=== PATIENT | female | born 1965 | race Caucasian/White ===

== ENCOUNTER 2022-08-12 10:44 | Emergency (ER) | payer OTHER, SELFPAY ==
[2022-08-12 10:54] VITALS: BP 106/73; PULSE 99; RESP 20; TEMP 36.3; O2SAT 98; BMI 23.3
--- NOTE | 2022-08-12 11:29 | CRLHL7_ITS ---
For Patients: As a result of the Century Cures Act, medical imaging exams and procedure reports are released immediately into your electronic medical record. You may view this report before your referring provider. If you have questions, please contact your health care provider. INDICATION: Pain, swelling. TECHNIQUE: Ultrasound venous duplex lower right extremity. Compression venous exam was performed using mcgowan-scale, color Doppler, and spectral Doppler imaging. COMPARISON: None. FINDINGS: Sonographic imaging demonstrates the right common femoral, deep femoral, superficial femoral, popliteal, posterior tibial and greater saphenous and the contralateral left common femoral veins to be fully compressible with normal color Doppler blood flow. Subtle area of somewhat increased echotexture involving muscular tissue in the upper medial right calf, consider possible intramuscular hematoma or strain injury. No subcutaneous fluid. IMPRESSION: 1. No imaging evidence of right lower extremity DVT. 2. Possible intramuscular hematoma or strain injury in the right upper calf. Consider MRI evaluation as clinically warranted. Dictated by Varinder Strickland MD @ 08/12/2022 1:46:12 PM Dictated by: Varinder Strickland MD @ 08/12/2022 13:46:20 (Electronically Signed)
--- NOTE | 2022-08-12 11:33 | ED.GENADULT ---
HPI - General Adult General Chief complaint: Extremity Pain/Injury, Lower Stated complaint: Possible blood clot Time Seen by Provider: 08/12/22 10:54 History of Present Illness HPI narrative: This 56-year-old female comes in with pain and a small area of swelling in her left calf. This is been present for about a week. She does not report any particular injury event or strenuous activity. She states that the pain is there whether she is ambulating or not. She does not have any prior history of blood clot and is in good health otherwise. She does not report any shortness of breath. She arrives with normal vital signs. Related Data Home Medications Medication Instructions Recorded Confirmed eszopiclone 3 mg tablet 3 mg PO QHS 08/12/22 08/12/22 levothyroxine 88 mcg tablet 88 mcg PO DAILY 08/12/22 08/12/22 (Euthyrox) liothyronine 5 mcg tablet 15 mcg PO DAILY 08/12/22 08/12/22 Allergies Allergy/AdvReac Type Severity Reaction Status Date / Time Penicillins Allergy Hives Verified 08/12/22 11:00 Review of Systems Status of ROS: Reports: 10 or more systems reviewed and unremarkable except as noted in History and below Narrative: Constitutional: No fevers, no weight gain or loss. Eyes: No discharge. No vision changes. HENT: No congestion, no sore throat, no ear pain. Cardiovascular: No chest pain, no palpitations. Respiratory: No shortness of breath, no wheezes, no cough. Gastrointestinal: No abdominal pain, no vomiting, no diarrhea. Genitourinary: No dysuria, no hematuria. Musculoskeletal: Normal range of motion. She reports pain in her right calf. Skin: No rashes, no pruritis. Neurological: No dizziness, weakness, sensory change, speech change. Endo/Heme/Allergies: No bruising or bleeding. No polydipsia. Pysch: no suicidality, no anxiety, no insomnia. All other systems reviewed and are negative. PFSH PFS Social History Smoking Status: Never smoker Do you use any of these nicotine containing products: None Second hand tobacco smoke exposure: No How often do you have a drink containing alcohol: monthly or less How many standard drinks containing alcohol do you have on a typical day: 3 or 4 How often do you have six or more drinks on one occasion: Never AUDIT-C Alcohol total score: 2 Non-prescribed substance use: denies use Exam Narrative: Exam Narrative: Constitutional: Well-developed, well-nourished, no acute distress. HEENT: Normocephalic, atraumatic. Neck: Normal range of motion. Nontender. Supple. Heart: Regular. No murmurs. Normal rate. Intact distal pulses. Lungs: Clear to auscultation. No chest discomfort. No wheezes, rhonchi, or rales. Abdomen: Normal bowel sounds. Nontender. No rebound tenderness. Genitalia: Deferred. Back: No midline tenderness. Normal range of motion. Extremities: Normal range of motion. No injury. Pain in the right calf with a palpable small swelling about 3 cm in diameter. Skin: Intact. No rash. Warm. No erythema or pallor. Neurologic: No altered sensation. No weakness. Alert and oriented. Psychiatric: No suicidality. No anxiety or depression. No insomnia. Nursing notes and vitals signs are reviewed. Const: Vital Signs, click to edit/add: Vital Signs - 24 hr 08/12/22 10:54 08/12/22 13:09 Temperature 97.3 F L Pulse Rate [Pulse Oximeter] 99 86 Respiratory Rate 20 20 Blood Pressure [Ri t Upper Arm] 106/73 117/78 Pulse Oximetry 98 96 Oxygen Delivery Me thod Room Air Course Vital Signs Vital signs: Initial Vital Signs Temperature 97.3 F L 08/12/22 10:54 Temperature Source Temporal Artery Scan 08/12/22 10:54 Pulse Rate 99 08/12/22 10:54 Respiratory Rate 20 08/12/22 10:54 Blood Pressure 106/73 08/12/22 10:54 Blood Pressure Mean 84 08/12/22 10:54 Blood Pressure Position Sitting 08/12/22 10:54 Pulse Oximetry 98 08/12/22 10:54 Oxygen Delivery Method 08/12/22 10:54 Vital Signs Temperature 97.3 F L 08/12/22 10:54 Pulse Rate 99 08/12/22 10:54 Respiratory Rate 20 08/12/22 10:54 Blood Pressure 106/73 08/12/22 10:54 Pulse Oximetry 98 08/12/22 10:54 Oxygen Delivery Method 08/12/22 10:54 Temperature 97.3 F L 08/12/22 10:54 Pulse Rate 86 08/12/22 13:09 Respiratory Rate 20 08/12/22 13:09 Blood Pressure 117/78 08/12/22 13:09 Pulse Oximetry 96 08/12/22 13:09 Oxygen Delivery Method 08/12/22 10:54 Medical Decision Making MDM Narrative Medical decision making narrative: This patient comes in with some pain and a localized small lump in the right calf musculature. Ultrasound of the right lower extremity shows no evidence of venous thrombus. There is a swelling in the area where she reports some pain that is possibly a hematoma in the muscle or perhaps a lipoma. Lipoma is are not typically painful so more likely this was a intramuscular hematoma that should resolve on its own. This information is reassuring to the patient who is okay to be discharged home. She can use [id number] medicines as needed and directed. Imaging Data US R Lower Ext: Radiologist's impression: 1. No imaging evidence of right lower extremity DVT. 2. Possible intramuscular hematoma or strain injury in the right upper calf. Consider MRI evaluation as clinically warranted. Discharge Plan Discharge Clinical Impression: Hematoma Patient Disposition: Home, Self-Care Condition: Unchanged Additional Instructions: Activity as tolerated. Use [id number] medicines as needed and directed. Follow up with MD or return if worsening. Prescriptions: No Action liothyronine 5 mcg tablet 15 mcg PO DAILY levothyroxine [Euthyrox] 88 mcg tablet 88 mcg PO DAILY eszopiclone 3 mg tablet 3 mg PO QHS Follow Up/Referrals: Provider,Not a Local [Primary Care Provider] - Stand Alone Forms: [employer] Info Instructions
[2022-08-12 13:09] VITALS: BP 117/78; PULSE 86; RESP 20; O2SAT 96
== END 2022-08-12 14:04 | disposition home or self-care (01) ==
PROVIDERS: Emergency Provider Emergency Medicine Emergency Medical Services
DX: S80.12XA Contusion of left lower leg, initial encounter (principal)
CPT/HCPCS: 93971; 99283; 99284

== ENCOUNTER 2024-08-02 11:48 | Emergency (ER) | payer BC, SELFPAY ==
[2024-08-02] VITALS (7 sets, daily range): BP systolic 97–119; BP diastolic 54–74; PULSE 82–93; RESP 12–18; TEMP 36.6; O2SAT 95–97; BMI 25.0
--- OUTSIDE RECORDS SUMMARY | 2024-08-02 11:50 | XMS_ITS | Clinical Summary ---
Author Organization [facility] Address [address] [place] [id number] Care Team Providers Care Stage Setting Painter Apprentice Name Role Phone No Ref-Primary, Physician Primary Care Provider Allergies Active Allergy Reactions Criticality Noted Date Comments Penicillins Hives High 09/01/2009 Sulfa Antibiotics Nausea 09/01/2009 Medications liothyronine (CYTOMEL) 5 MCG tablet 09/02/2019 Active levothyroxine (SYNTHROID/LEVOTHR OID) 88 MCG tablet 09/02/2019 Active eszopiclone (LUNESTA) 3 MG tablet 08/13/2019 Active Active Problems Problem Noted Date Diagnosed Date Acute bilateral low back pain without sciatica 0 08/14/2019 Headache 12/19/2010 Overview (03/05/2015): Problem list name updated by automated process. Provider to review Lumbago 03/07/2010 Nonallopathic lesion of thoracic region 03/07/20 10 Overview (03/05/2015): Problem list name updated by automated process. Provider to review Nonallopathic lesion of cervical region 03/07/20 10 Overview (03/05/2015): Problem list name updated by automated process. 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 Gender Identity Not on file Sexual Orientation Not on file Last Filed Vital Signs Vital Sign Reading Time Taken Comments Blood Pressure 99/61 03/21/2011 11:17 AM CDT Pulse - - Temperature - - Respiratory Rate - - Oxygen Saturation - - Inhaled Oxygen Concentration - - Weight 61.2 kg (135 lb) 03/21/2011 11:17 AM CDT Height 165.1 cm (5' 5) 03/21/2011 11:17 AM CDT Body Mass Index 22.47 03/21/2011 11:17 AM CDT Plan of Treatment Not on file Insurance [employer] [facility] [employer] Care Teams Stage Setting Painter Apprentice Relationship Specialty Start Date End Date No Ref-Primary, Physician PCP - General 08/14/19
--- OUTSIDE RECORDS SUMMARY | 2024-08-02 11:50 | XMS_ITS | Encounter Summary ---
Author Organization [facility] Address [address] [place] [address] Care Team Providers Care Leveling Machine Operator Name Role Phone Noam Ulrich MD Primary Care Provider Unavailable Reason for Visit * Procedure/Equipment (Routine) - Closed Specialty Diagnoses / Procedures Referred By Contcal t Referred To Contact Diagnoses Stroke-like symptoms Procedures MR Brain W/WO IV Cont Carol Frankel MD [address] [place] [address] Phone: tel: fax: Referral ID Status Reason Start Date Expiration Date Visits Re quested Visits Authorized [id number] Closed 06/17/2024 09/16/2025 1 1 Encounter Details Date Type Department Care Team (Latest Contact Info) Description 06/17/2024 7:00 PM HELPER SHEAR OPERATOR Ancillary Procedure [facility] [address] [place] [address] Carol Frankel MD [address] [place] [phone] Stroke-like symptoms Social History Tobacco Use Types Packs/Day Years Used Date Smoking Tobacco: Never Smokeless Tobacco: Never Comments No Sex and Gender Information Value Date Recorded Sex Assigned at Not on file Legal Sex Female 9:45 AM CDT Gender Identity Not on file Sexual Orientation Not on file documented as of this encounter Plan of Treatment Upcoming Encounters Date Type Department Care Team (Late st Contact Info) Description 08/14/2024 9:00 AM CDT Appointment Neurology at [address] [phone] Alycia Silveira PA-C [address] [place] [address] documented as of this encounter Procedures Procedure Name Priority Date/Time Associated Diagnosis Comments MR BRAIN W/WO IV CONT STAT 06/17/2024 7:10 PM HELPER SHEAR OPERATOR Stroke-like symptoms documented in this encounter Results * MR Brain W/WO IV Cont (06/17/2024 7:10 PM HELPER SHEAR OPERATOR) Anatomical Region Laterality Modality Head Magnetic Resonan ce 06/17/2024 7:10 PM HELPER SHEAR OPERATOR Narrative 06/17/2024 7:28 PM HELPER SHEAR OPERATOR EXAM: MR BRAIN W/WO IV CONT LOCATION: [facility] DATE: 06/17/2024 INDICATION: Recurrent spells of difficulty ambulation and confusion,, Unspecified symptoms and signs involving COMPARISON: None. CONTRAST: GADOBUTROL 1 MMOL/ML IV SOLN 7.5 mL TECHNIQUE: Routine multiplanar multisequence head MRI without and with intravenous contrast. FINDINGS: INTRACRANIAL CONTENTS: No acute or subacute infarct. No mass, acute hemorrhage, or extra-axial fluid collections. Normal brain parenchymal signal. Normal ventricles and sulci. Normal position of the cerebellar tonsils. No pathologic contrast enhancement. SELLA: No abnormality accounting for technique. OSSEOUS STRUCTURES/SOFT TISSUES: Normal marrow signal. The major intracranial vascular flow voids are maintained. ORBITS: No abnormality accounting for technique. SINUSES/MASTOIDS: No paranasal sinus mucosal disease. No middle ear or mastoid effusion. IMPRESSION: 1. No acute infarct, acute intracranial hemorrhage, or pathologic intracranial contrast enhancement. Procedure Note Sonny Bennett MD - 06/17/2024 EXAM: MR BRAIN W/WO IV CONT LOCATION: [facility] DATE: 06/17/2024 INDICATION: Recurrent spells of difficulty ambulation and confusion,,Unspecified symptoms and signs involving COMPARISON: None. CONTRAST: GADOBUTROL 1 MMOL/ML IV SOLN 7.5 mL TECHNIQUE: Routine multiplanar multisequence head MRI without and withintravenous contrast. FINDINGS: INTRACRANIAL CONTENTS: No acute or subacute infarct. No mass, acutehemorrhage, or extra-axial fluid collections. Normal brain parenchymalsignal. Normal ventricles and sulci. Normal position of the cerebellartonsils. No pathologic contrast enhancement. SELLA: No abnormality accounting for technique. OSSEOUS STRUCTURES/SOFT TISSUES: Normal marrow signal. The majorintracranial vascular flow voids are maintained. ORBITS: No abnormality accounting for technique. SINUSES/MASTOIDS: No paranasal sinus mucosal disease. No middle ear ormastoid effusion. IMPRESSION: 1. No acute infarct, acute intracranial hemorrhage, or pathologicintracranial contrast enhancement. us Carol Frankel MD [facility] MRI Final Result documented in this encounter Visit Diagnoses Diagnosis Stroke-like symptoms Other symptoms involving nervous and musculoskeletal systems documented in this encounter Administered Medications Inactive Administered Medications - up to 3 most recent administrations Medication Order MAR Action Action Date Dose Rate Site gadobutrol (GADAVIST) 1 MMOL/ML injection 7.5 mL 7.5 mL, Intravenous, ONCE (NON-SCHEDULED), Starting on Sun06/17/24 at 1852, Until Sun06/17/24 at 1859, For 1 dose Given 06/17/2024 6:59 PM HELPER SHEAR OPERATOR 7.5 mL documented in this encounter Care Teams Leveling Machine Operator Relationship Specialty Start Date End Date Noam Ulrich MD [address] [place] [address] PCP - General Family Practice 01/04/18 documented as of this encounter
--- OUTSIDE RECORDS SUMMARY | 2024-08-02 11:50 | XMS_ITS | Clinical Summary ---
Author Organization [facility] Address [address] [address] Care Team Providers Care Founder Chairman And Chief Creative Officer Name Role Phone Noam Ulrich MD Primary Care Provider Unavailable Source Comments You are receiving this document as you are listed as the primary care provider,follow-up provider, or the patient has been referred to you for consultation.This is in compliance with the Medicare and[facility] EHR Incentive Program,which states Providers who transition their patient to another setting of careor provider of care or refers their patient to another provider of care shouldprovide summary care record for each transition of care or referral. [employer] Allergies Active Allergy Reactions Criticality Noted Date Comments Amoxicillin Hives High 02/13/2018 Sulfa Antibiotics Nausea 09/01/2009 Medications levothyroxine (SYNTHROID) 88 MCG tablet Take 88 mcg by mouth daily. Active Cholecalciferol (VITAMIN D3) 5000 units TABS Take 10,000 Units by mouth. 09/28/2016 Active vitamin B-12 (AKA: CYANOCOBALAMIN) 1000 MCG tablet Take 1,000 mcg by mouth. 03/13/2017 Active fluticasone (FLONASE) 50 MCG/ACT nasal solution 2 Sprays by Nasal route. 07/06/2015 Active multivitamin (THERAGRAN) tablet Take 1 Tablet by mouth. 07/06/2015 Active progesterone micronized (PROMETRIUM) 100 MG capsule Take 100 mg by mouth. 07/05/2017 Active progesterone micronized (PROMETRIUM) 200 MG capsule Take 200 mg by mouth. 09/07/2016 Active SUMAtriptan (IMITREX) 100 MG tablet Take by mouth. 09/26/2013 Active eszopiclone (LUNESTA) 3 MG tablet Take 1 Tablet by mouth daily at bedtime. 10 Tablet 12/17/2018 Active methocarbamol (ROBAXIN) 500 MG tablet 1-2 tabs TID PRN for spasm/pain 24 Tablet 03/20/2022 Active Active Problems Problem Noted Date Diagnosed Date Stroke-like symptoms 06/17/2024 Chronic insomnia 02/13/2018 Encounters Date Type Department Care Team Description 06/17/2024 7:00 PM [employer] Ancillary Procedure [facility] [address] [place] [address] Carol Frankel MD Stroke-like symptoms 06/17/2024 11:37 AM [employer] - 06/17/2024 3:03 PM [employer] [employer] [address] [place] [address] Genevieve Reagan MD Dizziness (Primary Dx); Stroke-like symptoms; Weakness Discharge Disposition: Home from Last 3 Months Social History Tobacco Use Types Packs/Day Years Used Date Smoking Tobacco: Never Smokeless Tobacco: Never Tobacco Cessation:Counseling Given: Not Answered Comments No Sex and Gender Information Value Date Recorded Sex Assigned at Not on file Legal Sex Female 9:45 AM CDT Gender Identity Not on file Sexual Orientation Not on file Last Filed Vital Signs Vital Sign Reading Time Taken Comments Blood Pressure 106/49 06/17/2024 1:30 PM [employer] Pulse 73 06/17/2024 1:30 PM [employer] Temperature 36.2 C (97.2 F) 06/17/2024 11:59 AM [employer] Respiratory Rate 16 06/17/2024 11:59 AM [employer] Oxygen Saturation 98% 06/17/2024 1:30 PM [employer] Inhaled Oxygen Concentration - - Weight 63.5 kg (140 lb) 07/09/2018 10:59 AM [employer] Height 165.1 cm (5' 5) 07/09/2018 10:59 AM [employer] Body Mass Index 23.3 07/09/2018 10:59 AM [employer] Plan of Treatment Upcoming Encounters Date Type Department Care Team (Late st Contact Info) Description 08/14/2024 9:00 AM CDT Appointment Neurology at [facility] [address] [place] [address] Alycia Silveira PA-C [address] [place] [address] Health Maintenance Due Date Last Done Comments Cervical Cancer Screening Due 1965 Colon Cancer Screening Plan Due 1965 Hep C Screening (Preventive Services) 1965 HIV Screening (Preventive Services) 1981 Adult Preventive Visit 10/08/1983 HepB (1) 1984 Cholesterol 2010 Pneumococcal 50+ Yrs (1 of 1 - PCV) 10/08/2015 Zoster/Shingles (1 of 2) 10/08/2015 COVID-19 Vaccine (1 - season) 2024 Influenza (#1) 2024 03/03/2009 Mammogram 05/02/2024 05/02/2023, 04/05, 05/02/2023, Additional history exists DTaP/Tdap/Td (3 - Tdap) 09/28/2026 09/28/2016, 12/10 HepA Aged Out No longer eligi ble based on patient's age to complete this topic Hib Aged Out No longer eligi ble based on patient's age to complete this topic IPV (Polio) Aged Out No longer eligi ble based on patient's age to complete this topic MCV4 Aged Out No longer eligi ble based on patient's age to complete this topic Meningococcal B Aged Out No longer el igible based on patient's age to complete this topic Procedures Procedure Name Priority Date/Time Associated Diagnosis Comments MR BRAIN W/WO IV CONT STAT 06/17/2024 7:10 PM [employer] Stroke-like symptoms C-REACTIVE PROTEIN Add-On 06/17/2024 2: 22 PM [employer] AMMONIA STAT 06/17/2024 2:22 PM [employer] FOLATE ONLY (4HR FAST RECOMMENDED) STAT 06/17/2024 2:22 PM [employer] VITAMIN B1, BLOOD Routine 06/17/2024 2:2 2 PM [employer] RAPID DRUG PANEL, URINE Routine 06/17/2024 2:22 PM [employer] RSV, MOLECULAR DETECTION STAT 06/17/2024 12:17 PM [employer] INFLUENZA VIRUS A AND B, MOLECULAR DETECTION STAT 06/17/2024 12:17 PM [employer] 2019 NOVEL CORONAVIRUS STAT 06/17/2024 12:17 PM [employer] COVID/INFLUENZA A&B/RSV STAT 06/17/2024 12:17 PM [employer] TSH, SENSITIVE STAT Add-On 06/17/2024 12:13 PM [employer] VITAMIN B12 ONLY Add-On 06/17/2024 12:1 3 PM [employer] TROPONIN I STAT 06/17/2024 12:13 PM [employer] COMPLETE BLOOD COUNT-NO DIFF STAT 06/17/2024 12:13 PM [employer] BASIC METABOLIC PANEL STAT 06/17/2024 12:13 PM [employer] ECG-ROUTINE 12 LEAD; INTRPT & REPRT STAT 06/17/2024 12:00 PM [employer] GLUCOSE, WHOLE BLOOD POCT Routine 06/17/2024 11:37 AM [employer] from Last 3 Months Results * MR Brain W/WO IV Cont (06/17/2024 7:10 PM [employer]) Anatomical Region Laterality Modality Head Magnetic Resonan ce 06/17/2024 7:10 PM [employer] Narrative 06/17/2024 7:28 PM [employer] EXAM: MR BRAIN W/WO IV CONT LOCATION: [...] EXAM: MR BRAIN W/WO IV CONT LOCATION: [facility] DATE: 06/17/2024 INDICATION: Recurrent spells of [...] Carol Frankel MD RAD MRI Final Result * Vitamin B1, Blood (06/17/2024 2:22 PM [employer]) [facility] Vitamin B1 115 70 - 180 nmol/L 06/21/2024 7:50 AM [employer] [facility] [employer] Comment: INTERPRETIVE INFORMATION: Vitamin B1, Whole Blood This assay measures the concentration of thiamine diphosphate (TDP), the primary active form of vitamin B1. Approximately 90 percent of vitamin B1 present in whole blood is TDP. Thiamine and thiamine monophosphate, which comprise the remaining 10 percent, are not measured. This test was developed and its performance characteristics determined by [employer]. It has not been cleared or approved by the [place] Food and Drug Administration. This test was performed in a CLIA certified laboratory and is intended for clinical purposes. Performed By: [facility] [address] [place] [address] Rolling Down Machine Operator: Jhon James MD, PhD CLIA Number: [id number] Blood Venipuncture / Unknown 06/17/2024 2:22 PM [employer] 06/17/2024 2:29 PM [employer] Genevieve Reagan MD LAB_1 Final Result [facility] [address] [place], [place] [address] [place] [address] * Rapid Drug Panel, Urine with THC (06/17/2024 2:22 PM [employer]) [facility] Amphetamines Screen Not Detected Not Detected 06/17/2024 3:14 PM [facility] Barbiturates Screen Not Detected Not Detected 06/17/2024 3:14 PM [facility] Benzodiazepines Screen Not Detected Not Detected 06/17/2024 3:14 PM [facility] Buprenorphine Screen Not Detected Not Detected 06/17/2024 3:14 PM [facility] Cocaine Metabolite Screen Not Detected Not Detected 06/17/2024 3:14 PM [facility] Methadone Screen Not Detected Not Detected 06/17/2024 3:14 PM [facility] Opiates Screen Not Detected Not Detected 06/17/2024 3:14 PM [facility] Oxycodone Screen Not Detected Not Detected 06/17/2024 3:14 PM [facility] Phencyclidine (PCP) Screen Not Detected Not Detected 06/17/2024 3:14 PM [facility] THC (Marijuana) Metab Screen Not Detected Not Detected 06/17/2024 3:14 PM [facility] Creatinine, Urine, Random 51 >20 mg/dL 06/17/2024 3:14 PM [facility] Urine Non-blood Collection / Unknown 06/17/2024 2:22 PM [employer] 06/17/2024 2:33 PM [employer] [facility] - 06/17/2024 3:14 PM [employer] The absence of expected drug(s) and/or drug metabolite(s) may indicate non-compliance, inappropriate timing of specimen collection relative to drug administration, poor drug absorption, diluted/adulterated urine or limitations of testing. The concentration must be greater than or equal to the cutoff concentration to be reported as positive. For medical purposes only: not valid for forensic, legal, or employment use. Carol Frankel MD LAB_1 Final Result Performing Organization Address [facility] Co de Phone Number [address] * Ammonia (06/17/2024 2:22 PM [employer]) Pathologist [facility] Ammonia, Blood 19 18 - 72 umol/L 06/17/2024 2:46 PM [employer] [facility] Blood Venipuncture / Unknown 06/17/2024 2:22 PM [employer] 06/17/2024 2:29 PM [employer] Genevieve Reagan MD LAB_1 Final Result Performing Organization Address [facility] Co de Phone Number [address] * C-Reactive Protein (06/17/2024 2:22 PM [employer]) Pathologist [facility] C-Reactive Protein 0.4 0.0 - 0.5 mg/dL 06/17/2024 8:23 PM [employer] [facility] Blood Venipuncture / Unknown 06/17/2024 2:22 PM [employer] 06/17/2024 2:29 PM [employer] Carol Frankel MD LAB_1 Final Result Performing Organization Address [facility] Co de Phone Number [facility] [address] * Folate Only (4Hr Fast Recommended) (06/17/2024 2:22 PM [employer]) Folate 14.7 >=7.0 ng/mL 06/17/2024 6:31 PM [employer] [facility] Blood Venipuncture / Unknown 06/17/2024 2:22 PM [employer] 06/17/2024 2:29 PM [employer] Genevieve Reagan MD LAB_1 Final Result [facility] [address] * RSV RNA, Molecular Detection (06/17/2024 12:17 PM [employer]) [facility] RSV by PCR Not Detected Not Detected 06/17/2024 1:42 PM [employer] [facility] Swab (Source Required) (Nasopharyngeal swab) Non-blood Collection / Unknown 06/17/2024 12:17 PM [employer] 06/17/2024 12:38 PM [employer] 06/17/2024 1:42 PM [employer] Method: Qualitative real-time PCR assay to detect RSV Viral RNA. Genevieve Reagan MD LAB_1 Final Result Performing Organization Address [facility]/[place] [address], [facility] * Influenza A and B by PCR (06/17/2024 12:17 PM [employer]) [facility] INFLUENZA A MOLECULAR Not Detected Not Detected 06/17/2024 1:42 PM [employer] [facility] INFLUENZA B MOLECULAR Not Detected Not Detected 06/17/2024 1:42 PM [employer] [facility] Swab (Source Required) (Nasopharyngeal swab) Non-blood Collection / Unknown 06/17/2024 12:17 PM [employer] 06/17/2024 12:38 PM [employer] [facility] - 06/17/2024 1:42 PM [employer] Methodology: Qualitative real-time PCR assay to detect the Influenza type A and type B viral RNA Genevieve Reagan MD LAB_1 Final Result Performing Organization Address City/[facility]/[place] [address], [facility] * 2019 Novel Coronavirus (COVID-19) (06/17/2024 12:17 PM [employer]) [facility] COVID-19 Interpretation Not Detected Not Detected 06/17/2024 1:42 PM [facility] Source Nasopharyngeal swab 06/17/2024 1:42 PM [facility] Swab (Source Required) (Nasopharyngeal swab) Non-blood Collection / Unknown 06/17/2024 12:17 PM [employer] 06/17/2024 12:38 PM [employer] Narrative [facility] - 06/17/2024 1:42 PM [employer] Methodology: Test performed by real-time PCR. This test has been authorized by the FDA under an Emergency Use Authorization (EUA) for use by authorized laboratories. Genevieve Reagan MD LAB_1 Final Result [address] * TSH (06/17/2024 12:13 PM [employer]) [facility] TSH, Sensitive 0.44 0.30 - 4.50 uIU/mL 06/17/2024 1:46 PM [facility] Blood Venipuncture / Unknown 06/17/2024 12:13 PM [employer] 06/17/2024 12:31 PM [employer] Genevieve Reagan MD LAB_1 Final Result Performing Organization Address City/[facility]/ZIP Co de Phone Number [address] * Basic Metabolic Panel (06/17/2024 12:13 PM [employer]) [facility] Sodium 138 136 - 145 mmol/L 06/17/2024 1:14 PM [facility] Potassium 4.0 3.5 - 5.1 mmol/L 06/17/2024 1:14 PM [facility] Chloride 107 98 - 109 mmol/L 06/17/2024 1:14 PM [facility] CO2 21 20 - 29 mmol/L 06/17/2024 1:14 PM [facility] Anion Gap 10 6 - 16 mmol/L 06/17/2024 1:14 PM [facility] Calcium 9.2 8.4 - 10.4 mg/dL 06/17/2024 1:14 PM [facility] BUN 19 7 - 26 mg/dL 06/17/2024 1:14 PM [facility] Creatinine 0.86 0.55 - 1.02 mg/dL 06/17/2024 1:14 PM [facility] Glucose 87 70 - 100 mg/dL 06/17/2024 1:14 PM [facility] Comment:The given reference range is for the fasting state. Non-fasting reference range for glucose is 70 - 180 mg/dL. GFR, Estimated >60 >60 mL/min/1.7 3m2 06/17/2024 1:14 PM [facility] Blood Venipuncture / Unknown 06/17/2024 12:13 PM [employer] 06/17/2024 12:31 PM [employer] us Genevieve Reagan MD LAB_1 Final Result Performing Organization Address [facility]/ZIP Co de Phone Number [address] * Troponin I (06/17/2024 12:13 PM [employer]) Troponin I <0.01 0.00 - 0.03 ng/mL 06/17/2024 1:21 PM [facility] Blood Venipuncture / Unknown 06/17/2024 12:13 PM [employer] 06/17/2024 12:31 PM [employer] us Genevieve Reagan MD LAB_1 Final Result Performing Organization Address City/[facility]/ZIP Co de Phone Number [address] * (ABNORMAL) Complete Blood Count -no Diff (06/17/2024 12:13 PM [employer]) WBC 6.8 3.5 - 10.5 x10(9)/L 06/17/2024 12:50 PM [facility] RBC 4.74 3.90 - 5.03 x10(12)/L 06/17/2024 12:50 PM [facility] Hemoglobin 13.2 12.0 - 15.5 g/dL 06/17/2024 12:50 PM [facility] HCT 39.6 34.9 - 44.5 % 06/17/2024 12:50 PM [facility] MCV 83.5 80.0 - 100.0 fL 06/17/2024 12:50 PM [facility] MCH 27.8 27.6 - 33.3 pg 06/17/2024 12:50 PM [facility] MCHC 33.3 31.5 - 35.2 g/dL 06/17/2024 12:50 PM [facility] RDW 16.1(H) 11.9 - 15.5 % 06/17/2024 12:50 PM [facility] Platelets 266 150 - 450 x10(9)/L 06/17/2024 12:50 PM [facility] Automated NRBC 0 <=0 /100 WBC 06/17/2024 12:50 PM [facility] Blood Venipuncture / Unknown 06/17/2024 12:13 PM [employer] 06/17/2024 12:31 PM [employer] Genevieve Reagan MD LAB_1 [place] [address], [facility] * Vitamin B12 Only (06/17/2024 12:13 PM [employer]) Pathologist [facility] Vitamin B12 725 213 - 816 pg/mL 06/17/2024 4:55 PM [facility] [employer] Blood Venipuncture / Unknown 06/17/2024 12:13 PM [employer] 06/17/2024 12:31 PM [employer] us Genevieve Reagan MD LAB_1 Final Result [facility] [address] [place] [address], [facility] * ECG 12-LEAD ROUTINE (06/17/2024 12:00 PM [employer]) Ventricular Rate 67 BPM [facility] Atrial Rate 67 BPM [facility] P-R Interval 166 ms [facility] QRS Duration 82 ms [facility] QT 400 ms [facility] QTC 422 ms [facility] P Cameron 52 degrees [facility] R Cameron 60 degrees [facility] T Cameron 51 degrees [facility] 06/17/2024 12:0 0 PM [employer] Narrative [facility] - 06/17/2024 3:29 PM [employer] Sinus rhythm Nonspecific ST abnormality Abnormal ECG No previous ECGs available Confirmed by Alice Justice ([id number]) on 06/17/2024 3:29:31 PM Procedure Note Alice Justice MD - 06/17/[address] abnormality Abnormal ECG No previous ECGs available Confirmed by Alice Justice ([id number]) on 06/17/2024 3:29:31 PM us Genevieve Reagan MD EKG Final Result Performing Organization Address City/[facility]/ZIP Co de Phone Number [facility] [address] [place] [address] * Glucose, Whole Blood POCT (06/17/2024 11:37 AM [employer]) [facility] Glucose, Whole Blood 92 70 - 180 mg/dL 06/17/2024 11:39 AM [employer] [facility] Performing Location [facility] ED A 06/17/2024 11:39 AM [employer] [facility] Blood 06/17/2024 11:3 7 AM [employer] 06/17/2024 11:39 AM [employer] us Interface Provider LAB_1 Final Resu lt [facility] [address] [place] [address], [facility] from Last 3 Months Insurance [facility] [employer] Care Teams Founder Chairman And Chief Creative Officer Relationship Specialty Start Date End Date oNam Ulrich MD [address] [place] [address] PCP - General Family Practice 01/04/18
--- OUTSIDE RECORDS SUMMARY | 2024-08-02 12:49 | XMS_ITS | Encounter Summary ---
Author Organization [facility] Address [address] [place] [address] Care Team Providers Care Dairy Feed Sales Consultant Name Role Phone Noam Ulrich MD Primary Care Provider Unavailable Reason for Visit * Procedure/Equipment (Routine) - Closed Specialty Diagnoses / Procedures Referred By Contcal t Referred To Contact Diagnoses Stroke-like symptoms Procedures MR Brain W/WO IV Cont Carol Frankel MD [address] [place] [address] Phone: tel: fax: Referral ID Status Reason Start Date Expiration Date Visits Re quested Visits Authorized [id number] Closed 06/17/2024 09/16/2025 1 1 Encounter Details Date Type Department Care Team (Latest Contact Info) Description 06/17/2024 7:00 PM PHYSICIAN CHIEF OF PATHOLOGY Ancillary Procedure [facility] [address] [place] [address] Carol Frankel MD [address] [place] [phone] Stroke-like symptoms Social History Tobacco Use Types [...] 08/14/2024 9:00 AM CDT Appointment Neurology at [address] [id number] Alycia Silveira PA-C [address] [place] [address] documented as of this encounter Procedures Procedure Name Priority Date/Time Associated Diagnosis Comments MR BRAIN W/WO IV CONT STAT 06/17/2024 7:10 PM PHYSICIAN CHIEF OF PATHOLOGY Stroke-like symptoms documented in this encounter Results * MR Brain W/WO IV Cont (06/17/2024 7:10 PM PHYSICIAN CHIEF OF PATHOLOGY) Anatomical Region Laterality Modality Head Magnetic Resonan ce 06/17/2024 7:10 PM PHYSICIAN CHIEF OF PATHOLOGY Narrative 06/17/2024 7:28 PM PHYSICIAN CHIEF OF PATHOLOGY EXAM: MR BRAIN W/WO IV CONT LOCATION: [...] For 1 dose Given 06/17/2024 6:59 PM PHYSICIAN CHIEF OF PATHOLOGY 7.5 mL documented in this encounter Care Teams Dairy Feed Sales Consultant Relationship Specialty Start Date End Date Noam Ulrich MD [address] [place] [address] PCP - General Family Practice 01/04/18 documented as of this encounter
--- OUTSIDE RECORDS SUMMARY | 2024-08-02 12:49 | XMS_ITS | Clinical Summary ---
[facility] Address [address] [address] Care Team Providers Care Limnologist Name Role Phone Noam Ulrich MD Primary Care Provider Unavailable Source Comments You are receiving this document as you are listed as the primary care provider,follow-up provider, or the patient has been referred to you for consultation.This is in compliance with the Medicare and[facility] Hospitalcaid EHR Incentive Program,which states Providers who transition their patient to another setting of careor provider of care or refers their patient to another provider of care shouldprovide summary care record for each transition of care or referral. [employer] Allergies Active Allergy Reactions Criticality Noted Date [...] Department Care Team Description 06/17/2024 7:00 PM CASH REGISTER SERVICER Ancillary Procedure [facility] [address] [place] [address] Carol Frankel MD Stroke-like symptoms 06/17/2024 11:37 AM CASH REGISTER SERVICER - 06/17/2024 3:03 PM CASH REGISTER SERVICER Emergency [facility] [address] [place] [id number] Genevieve Reagan MD Dizziness (Primary Dx); Stroke-like [...] Comments Blood Pressure 106/49 06/17/2024 1:30 PM CASH REGISTER SERVICER Pulse 73 06/17/2024 1:30 PM CASH REGISTER SERVICER Temperature 36.2 C (97.2 F) 06/17/2024 11:59 AM CASH REGISTER SERVICER Respiratory Rate 16 06/17/2024 11:59 AM CASH REGISTER SERVICER Oxygen Saturation 98% 06/17/2024 1:30 PM CASH REGISTER SERVICER Inhaled Oxygen Concentration - - Weight 63.5 kg (140 lb) 07/09/2018 10:59 AM CASH REGISTER SERVICER Height 165.1 cm (5' 5) 07/09/2018 10:59 AM CASH REGISTER SERVICER Body Mass Index 23.3 07/09/2018 10:59 AM CASH REGISTER SERVICER Plan of Treatment Upcoming Encounters Date Type Department Care Team (Late st Contact Info) Description 08/14/2024 9:00 AM CDT Appointment Neurology at [facility] [address] [facility] [place] [address] Alycia Silveira PA-C [address] [place] [address] Health Maintenance Due Date Last Done Comments [...] W/WO IV CONT STAT 06/17/2024 7:10 PM CASH REGISTER SERVICER Stroke-like symptoms C-REACTIVE PROTEIN Add-On 06/17/2024 2: 22 PM CASH REGISTER SERVICER AMMONIA STAT 06/17/2024 2:22 PM CASH REGISTER SERVICER FOLATE ONLY (4HR FAST RECOMMENDED) STAT 06/17/2024 2:22 PM CASH REGISTER SERVICER VITAMIN B1, BLOOD Routine 06/17/2024 2:2 2 PM CASH REGISTER SERVICER RAPID DRUG PANEL, URINE Routine 06/17/2024 2:22 PM CASH REGISTER SERVICER RSV, MOLECULAR DETECTION STAT 06/17/2024 12:17 PM CASH REGISTER SERVICER INFLUENZA VIRUS A AND B, MOLECULAR DETECTION STAT 06/17/2024 12:17 PM CASH REGISTER SERVICER 2019 NOVEL CORONAVIRUS STAT 06/17/2024 12:17 PM CASH REGISTER SERVICER COVID/INFLUENZA A&B/RSV STAT 06/17/2024 12:17 PM CASH REGISTER SERVICER TSH, SENSITIVE STAT Add-On 06/17/2024 12:13 PM CASH REGISTER SERVICER VITAMIN B12 ONLY Add-On 06/17/2024 12:1 3 PM CASH REGISTER SERVICER TROPONIN I STAT 06/17/2024 12:13 PM CASH REGISTER SERVICER COMPLETE BLOOD COUNT-NO DIFF STAT 06/17/2024 12:13 PM CASH REGISTER SERVICER BASIC METABOLIC PANEL STAT 06/17/2024 12:13 PM CASH REGISTER SERVICER ECG-ROUTINE 12 LEAD; INTRPT & REPRT STAT 06/17/2024 12:00 PM CASH REGISTER SERVICER GLUCOSE, WHOLE BLOOD POCT Routine 06/17/2024 11:37 AM CASH REGISTER SERVICER from Last 3 Months Results * MR Brain W/WO IV Cont (06/17/2024 7:10 PM CASH REGISTER SERVICER) Anatomical Region Laterality Modality Head Magnetic Resonan ce 06/17/2024 7:10 PM CASH REGISTER SERVICER Narrative 06/17/2024 7:28 PM CASH REGISTER SERVICER EXAM: MR BRAIN W/WO IV CONT LOCATION: [...] EXAM: MR BRAIN W/WO IV CONT LOCATION: [facility] DATE: 06/17/2024 INDICATION: Recurrent spells of difficulty [...] * Vitamin B1, Blood (06/17/2024 2:22 PM CASH REGISTER SERVICER) [facility] Vitamin B1 115 70 - 180 nmol/L 06/21/2024 7:50 AM CASH REGISTER SERVICER [facility] [employer] Comment: INTERPRETIVE INFORMATION: Vitamin B1, Whole Blood This assay measures the concentration of thiamine diphosphate (TDP), the primary active form of vitamin B1. Approximately 90 percent of vitamin B1 present in whole blood is TDP. Thiamine and thiamine monophosphate, which comprise the remaining 10 percent, are not measured. This test was developed and its performance characteristics determined by [employer]. It has not been cleared or approved by the US Food and Drug Administration. This test was performed in a CLIA certified laboratory and is intended for clinical purposes. Performed By: [facility] [address] [place] [address] Chin Strap Maker: Jhon James MD, PhD CLIA Number: [id number] Blood Venipuncture / Unknown 06/17/2024 2:22 PM CASH REGISTER SERVICER 06/17/2024 2:29 PM CASH REGISTER SERVICER Genevieve Reagan MD LAB_1 Final Result [facility] [address] [place], [place] [address] [place] [address] * Rapid Drug Panel, Urine with THC (06/17/2024 2:22 PM CASH REGISTER SERVICER) [facility] Amphetamines Screen Not Detected Not Detected 06/17/2024 3:14 PM [facility] Barbiturates Screen Not Detected Not Detected 06/17/2024 3:14 PM [facility] Benzodiazepines Screen Not Detected Not Detected 06/17/2024 3:14 PM [facility] Buprenorphine Screen Not Detected Not Detected 06/17/2024 3:14 PM [facility] Cocaine Metabolite Screen Not Detected Not Detected 06/17/2024 3:14 PM [facility] Methadone Screen Not Detected Not Detected 06/17/2024 3:14 PM [facility] Opiates Screen Not Detected Not Detected 06/17/2024 3:14 PM [facility] Oxycodone Screen Not Detected Not Detected 06/17/2024 3:14 PM [facility] Phencyclidine (PCP) Screen Not Detected Not Detected 06/17/2024 3:14 PM [facility] THC (Marijuana) Metab Screen Not Detected Not Detected 06/17/2024 3:14 PM [facility] Creatinine, Urine, Random 51 >20 mg/dL 06/17/2024 3:14 PM [facility] Urine Non-blood Collection / Unknown 06/17/2024 2:22 PM CASH REGISTER SERVICER 06/17/2024 2:33 PM CASH REGISTER SERVICER [facility] - 06/17/2024 3:14 PM CASH REGISTER SERVICER The absence of expected drug(s) and/or drug [...] MD LAB_1 Final Result Performing Organization Address [facility] Co de Phone Number [address] * Ammonia (06/17/2024 2:22 PM CASH REGISTER SERVICER) Pathologist [facility] [place] Ammonia, Blood 19 18 - 72 umol/L 06/17/2024 2:46 [address] CASH REGISTER SERV[address]ER [facility] Blood Venipuncture / Unknown 06/17/2024 2:22 PM CASH REGISTER SERVICER 06/17/2024 2:29 PM CASH REGISTER SERVICER Genevieve Reagan MD LAB_1 Final Result Performing Organization Address [facility] Co de Phone Number [address] * C-Reactive Protein (06/17/2024 2:22 PM CASH REGISTER SERVICER) Pathologist [facility] [place] C-Reactive Protein 0.4 0.0 - 0.5 mg/dL 06/17/2024 8:23 PM CASH REGISTER SERVICER [facility] Blood Venipuncture / Unknown 06/17/2024 2:22 PM CASH REGISTER SERVICER 06/17/2024 2:29 PM CASH REGISTER SERVICER Carol Frankel MD LAB_1 Final Result Performing Organization Address [facility] Co de Phone Number [facility] [address] * Folate Only (4Hr Fast Recommended) (06/17/2024 2:22 PM CASH REGISTER SERVICER) Folate 14.7 >=7.0 ng/mL 06/17/2024 6:31 PM CASH REGISTER SERVICER [facility] Blood Venipuncture / Unknown 06/17/2024 2:22 PM CASH REGISTER SERVICER 06/17/2024 2:29 PM CASH REGISTER SERVICER Genevieve Reagan MD LAB_1 Final Result [facility] [address] * RSV RNA, Molecular Detection (06/17/2024 12:17 PM CASH REGISTER SERVICER) [facility] RSV by PCR Not Detected Not Detected 06/17/2024 1:42 PM CASH REGISTER SERVICER [facility] Swab (Source Required) (Nasopharyngeal swab) Non-blood Collection / Unknown 06/17/2024 12:17 PM CASH REGISTER SERVICER 06/17/2024 12:38 PM CASH REGISTER SERVICER [facility] 06/17/2024 1:42 PM CASH REGISTER SERVICER Method: Qualitative real-time PCR assay to detect RSV Viral RNA. Genevieve Reagan MD LAB_1 Final Result Performing Organization Address [facility]/[place] [address], [facility] * Influenza A and B by PCR (06/17/2024 12:17 PM CASH REGISTER SERVICER) [facility] INFLUENZA A MOLECULAR Not Detected Not Detected 06/17/2024 1:42 [address] REG[address] [facility] INFLUENZA B MOLECULAR Not Detected Not Detected 06/17/2024 1:42 PM CASH REGISTER SERVICER [facility] Swab (Source Required) (Nasopharyngeal swab) Non-blood Collection / Unknown 06/17/2024 12:17 PM CASH REGISTER SERVICER 06/17/2024 12:38 PM CASH REGISTER SERVICER [facility] - 06/17/2024 1:42 PM CASH REGISTER SERVICER Methodology: Qualitative real-time PCR assay to detect the Influenza type A and type B viral RNA Genevieve Reagan MD LAB_1 Final Result Performing Organization Address City/[facility]/[place] [address], [facility] * 2019 Novel Coronavirus (COVID-19) (06/17/2024 12:17 PM CASH REGISTER SERVICER) [facility] COVID-19 Interpretation Not Detected Not Detected 06/17/2024 1:42 PM [facility] Source Nasopharyngeal swab 06/17/2024 1:42 PM [facility] Swab (Source Required) (Nasopharyngeal swab) Non-blood Collection / Unknown 06/17/2024 12:17 PM CASH REGISTER SERVICER 06/17/2024 12:38 PM CASH REGISTER SERVICER Narrative [facility] - 06/17/2024 1:42 PM CASH REGISTER SERVICER Methodology: Test performed by real-time PCR. This test has been authorized by the FDA under an Emergency Use Authorization (EUA) for use by authorized laboratories. Genevieve Reagan MD LAB_1 Final Result [address] * TSH (06/17/2024 12:13 PM CASH REGISTER SERVICER) [facility] TSH, Sensitive 0.44 0.30 - 4.50 uIU/mL 06/17/2024 1:46 PM [facility] Blood Venipuncture / Unknown 06/17/2024 12:13 PM CASH REGISTER SERVICER 06/17/2024 12:31 PM CASH REGISTER SERVICER Genevieve Reagan MD LAB_1 Final Result Performing Organization Address City/[facility]/ZIP Co de Phone Number [address] * Basic Metabolic Panel (06/17/2024 12:13 PM CASH REGISTER SERVICER) [facility] Sodium 138 136 - 145 mmol/L 06/17/2024 1:14 PM [facility] Potassium 4.0 3.5 - 5.1 mmol/L 06/17/2024 1:14 PM [facility] Chloride 107 98 - 109 mmol/L 06/17/2024 1:14 PM [facility] CO2 21 20 - 29 mmol/L 06/17/2024 1:14 PM [facility] Anion Gap 10 6 - 16 mmol/L 06/17/2024 1:14 PM [facility] Calcium 9.2 8.4 - 10.4 mg/dL 06/17/2024 1:14 PM [facility] BUN 19 7 - 26 mg/dL 06/17/2024 1:14 PM [facility] Creatinine 0.86 0.55 - 1.02 mg/dL 06/17/2024 1:14 PM [facility] Glucose 87 70 - 100 mg/dL 06/17/2024 1:14 PM [facility] Comment:The given reference range is for the fasting state. Non-fasting reference range for glucose is 70 - 180 mg/dL. GFR, Estimated >60 >60 mL/min/1.7 3m2 06/17/2024 1:14 PM [facility] Blood Venipuncture / Unknown 06/17/2024 12:13 PM CASH REGISTER SERVICER 06/17/2024 12:31 PM CASH REGISTER SERVICER us Genevieve Reagan MD LAB_1 Final Result Performing Organization Address [facility]/ZIP Co de Phone Number [address] * Troponin I (06/17/2024 12:13 PM CASH REGISTER SERVICER) Troponin I <0.01 0.00 - 0.03 ng/mL 06/17/2024 1:21 PM [facility] Blood Venipuncture / Unknown 06/17/2024 12:13 PM CASH REGISTER SERVICER 06/17/2024 12:31 PM CASH REGISTER SERVICER us Genevieve Reagan MD LAB_1 Final Result Performing Organization Address City/[facility]/ZIP Co de Phone Number [address] * (ABNORMAL) Complete Blood Count -no Diff (06/17/2024 12:13 PM CASH REGISTER SERVICER) WBC 6.8 3.5 - 10.5 x10(9)/L 06/17/2024 12:50 PM [facility] RBC 4.74 3.90 - 5.03 x10(12)/L 06/17/2024 12:50 PM [facility] Hemoglobin 13.2 12.0 - 15.5 g/dL 06/17/2024 12:50 PM [facility] HCT 39.6 34.9 - 44.5 % 06/17/2024 12:50 PM [facility] MCV 83.5 80.0 - 100.0 fL 06/17/2024 12:50 PM [facility] MCH 27.8 27.6 - 33.3 pg 06/17/2024 12:50 PM [facility] MCHC 33.3 31.5 - 35.2 g/dL 06/17/2024 12:50 PM [facility] RDW 16.1(H) 11.9 - 15.5 % 06/17/2024 12:50 PM [facility] Platelets 266 150 - 450 x10(9)/L 06/17/2024 12:50 PM [facility] Automated NRBC 0 <=0 /100 WBC 06/17/2024 12:50 PM [facility] Blood Venipuncture / Unknown 06/17/2024 12:13 PM CASH REGISTER SERVICER 06/17/2024 12:31 PM CASH REGISTER SERVICER Genevieve Reagan MD LAB_1 [place] [address], [facility] * Vitamin B12 Only (06/17/2024 12:13 PM CASH REGISTER SERVICER) Pathologist [facility] [place] Vitamin B12 725 213 - 816 pg/mL 06/17/2024 4:55 PM CASH REGISTER SERVICER [facility] Blood Venipuncture / Unknown 06/17/2024 12:13 PM CASH REGISTER SERVICER 06/17/2024 12:31 PM CASH REGISTER SERVICER us Genevieve Reagan MD LAB_1 Final Result [facility] [address] [place] [address], [facility] * ECG 12-LEAD ROUTINE (06/17/2024 12:00 PM CASH REGISTER SERVICER) Ventricular Rate 67 BPM [facility] Atrial Rate 67 BPM [facility] P-R Interval 166 ms [facility] QRS Duration 82 ms [facility] QT 400 ms M[facility] QTC 422 ms [facility] P [place] 52 degrees MUSE GHP R [place] 60 degrees MUSE [facility]HP T [place] 51 degrees MUSE [facility] 06/17/2024 12:0 0 PM CASH REGISTER SERVICER Narrative [facility] - 06/17/2024 3:29 PM CASH REGISTER SERVICER Sinus rhythm Nonspecific ST abnormality Abnormal ECG No previous ECGs available Confirmed by Alice Justice ([id number]) on 06/17/2024 3:29:31 PM Procedure Note Alice Justice MD - 06/17/[address] abnormality Abnormal ECG No previous ECGs available Confirmed by Alice Justice ([id number]) on 06/17/2024 3:29:31 PM us Genevieve Reagan MD EKG Final Result Performing Organization Address City/[facility]/ZIP Co de Phone Number [facility] [address] [place] [id number] * Glucose, Whole Blood POCT (06/17/2024 11:37 AM CASH REGISTER SERVICER) [facility] Glucose, Whole Blood 92 70 - 180 mg/dL 06/17/2024 11:39 [address] CASH REGISTER [address] [facility] Performing Location [facility] ED A 06/17/2024 11:39 AM CASH REGISTER SERV[address]ER [facility] Blood 06/17/2024 11:3 7 AM CASH REGISTER SERVICER 06/17/2024 11:39 AM CASH REGISTER SERVICER us Interface Provider LAB_[address] [facility] [address] [place] [address], [facility] from Last 3 Months Insurance [facility] [place] [facility] Care Teams Limnologist Relationship Specialty Start Date End Date Noam Ulrich MD [address] [place] [address] PCP - General Family Practice 01/04/18
--- OUTSIDE RECORDS SUMMARY | 2024-08-02 12:49 | XMS_ITS | Clinical Summary ---
Author Organization [facility] Address [address] [place] [id number] Care Team Providers Care Clay Digger Name Role Phone No Ref-Primary, Physician Primary [...] on file Legal Sex Female 3:06 AM TELEVISION ANTENNA INSTALLER Gender Identity Not on file Sexual Orientation [...] Plan of Treatment Not on file Insurance [employer] [facility] AETNA Care Teams Clay Digger Relationship Specialty Start Date End Date No Ref-Primary, Physician PCP - General 08/14/19
--- OUTSIDE RECORDS SUMMARY | 2024-08-02 12:49 | XMS_ITS | Clinical Summary ---
Author Organization [employer] [facility] Address [address] [place] [id number] Care Team Providers Care Returned Case Inspector Name Role Phone Maame Zamora MD Unavailable Yuni Gauthier MD Primary Care Provider Allergies Active Allergy Reactions Criticality Noted Date Comments Penicillins Hives 09/01/2009 Sulfa (Sulfonamide Antibiotics) Nausea Only Medications medication order composer Magnesium 325mg once daily 0 7 Active progesterone micronized (PROMETRIUM) 200 mg capsule 3 Active thyroid (ARMOUR THYROID) 90 mg tablet Take 90 mg by mouth once daily. 3 Active ondansetron (ZOFRAN) 4 mg tablet 4 Active eszopiclone (LUNESTA) 3 mg tabletIndicatio ns:Insomnia, idiopathic TAKE 1 TABLET (3 MG) BY MOUTH AT BEDTIME IF NEEDED FOR SLEEP. 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 CHERYLE I (cervical intraepithelial neoplasia I) 06/2010 Overview (12/07/2021): 03/2010 ASCUS, HPV + 04/2010 Colposcopy- CHERYLE I 11/2010 ASCUS, HPV + 04/2011 LSIL 05/2011 Colposcopy - negative biopsies 07/2017 NIL/HPV Negative 09/2021 NIL/HPV Negative Plan: Pap/HPV due 09/2024 Migraines 03/04/2010 Chronic insomnia 09/01/2009 Resolved Problems Problem Noted Date Diagnosed Date Resolved Date Myopia of both eyes with ast igmatism and presbyopia 04/25/2019 10/11/2022 Night sweats 04/14/2018 10/11/2022 Right L5-S1 HNP (herniated n ucleus pulposus), lumbar 03/28/2012 10/11/2022 Right S1 Lumbar radiculopathy 03/28/2012 10/11/2022 Depression with anxiety 04/13/201110/02 Encounters Date Type Department Care Team Description 07/24/2024 10:00 AM CLAIM TRAINEE [place] Only [facility] [address] [place] [address] Lab, [facility] 07/24/2024 Travel 07/16/2024 Orders Only [facility] Scanner 1 scan: (1-Ord) [facility] 06/17/2024 Nurse Triage [facility] [address] [place] [address] Yuni Gauthier MD Dizzy 06/01/2024 Refill [facility] [address] [place] [address] Yuni Gauthier MD Refill Request (Eszopiclone) from Last 3 Months Immunizations Name Administration Dates Next Due Influenza Virus, Unspecified 03/03/2009 Tdap 09/28/2016,12/10/2006 Family History Medical History Relation Name Comments Thyroid Disease Brother 1 Bill Hyperthyroid ism No Known Problems Brother 2 Ezra Gout Brother 3 Varinder Diabetes Daughter 1 Radha age 13 for diag nosis Celiac disease Daughter 2 [place] Heart attack Father Skin cancer Father Thyroid Disease Father Fibromyalgia Mother Thyroid Disease Mother Cancer-pancreatic Paternal Uncle No Known Problems Sister Jailyn Gout Son Hossein Anesthesia Problem No Family History Blood Disease No Family History Clotting disorder No Family History Relation Name Status Comments Brother 1 Demarcus Alive Brother 2 Ezra Alive Brother 3 Varinder Alive Daughter 1 Radha Alive Daughter 2 [place] Alive Father Alive Maternal Grandfather Maternal Grandmother Mother Paternal Grandfather Paternal Grandmother Paternal Uncle Sister Jailyn Alive Son Hossein Alive Social History Tobacco Use Types Packs/Day Years Used Date Smoking Tobacco: Never Smokeless Tobacco: Never Tobacco Cessation:Counseling Given: Yes Alcohol Use Standard Drinks/Week Comments Yes 0 (1 standard drink = 0.6 oz pure alcohol) A glass of wine a couple times a month PHQ-2 Answer Date Recorded PHQ-2 TOTAL SCORE 0 12/05/2023 Social Connections Answer Date Recorded Do you often feel lonely or isolated from those around you? 0 12/05/2023 Financial Resource Strain Answer Date R ecorded Difficulty of Paying Living Expenses 3 12/05/2023 Difficulty of Paying Living Expenses Not on file 12/05/2023 Food Insecurity Answer Date Recorded Do you worry your food will run out before you are able to buy more? 1 12/05/2023 Transportation Needs Answer Date Record ed Does lack of transportation keep you from medica l appointments? 1 12/05/2023 Does lack of transportation keep you from work, meetings or getting things that you need? 1 12/05/2023 Housing Stability Answer Date Recorded What is your housing situation today? 1 12/05/2023 Utilities Answer Date Recorded Do you have trouble paying f or utilities (for example, heat, electricity, water, phone)? 1 12/05/2023 Comments No Sex and Gender Information Value Date Recorded Sex Assigned at Not on file Legal Sex Female 6:33 AM CLAIM TRAINEE Gender Identity Not on file Sexual Orientation Not on file Occupation Industry Job Start Date Job End Date [employer] Not on file Not on file Not on file Obstetrics History Para Term AB IAB SAB Ectopic Multiple Livin g Live Births 3 3 3 3 3 Date Outcome GA Total Labor Labor/2nd/3rd Weight Sex Type Anes PTL Tila A1 A5 Name Clin 08/14 Term F Vag Living [place] 08/07 Term M Vag Living Hossein 11/20 Term F Vag Living Radha Last Filed Vital Signs Vital Sign Reading Time Taken Comments Blood Pressure 102/60 12/05/2023 10:44 AM CDT Pulse 78 12/05/2023 10:44 AM CDT Temperature 36.8 C (98.2 F) 05/17/2021 9:56 AM CLAIM TRAINEE Respiratory Rate 14 06/30/2020 3:07 PM CLAIM TRAINEE Oxygen Saturation 97% 12/05/2023 10:44 AM CDT Inhaled Oxygen Concentration - - Weight 66.4 kg (146 lb 4.8 oz) 12/05/2023 10:44 AM CDT Height 164 cm (5' 4.57) 12/05/2023 10:44 AM CDT Body Mass Index 24.67 12/05/2023 10:44 AM CDT Plan of Treatment Health Maintenance Due Date Last Done Comments Pneumococcal series for age 50+ (1 of 1 - PCV) 10/08/2015 Zoster (shingles) series for age 50+ (1 of 2) 10/08/2015 COVID-19 vaccine series ( - season) 2024 Influenza for age 50-64 02/03/2024 03/03/2009 Mammogram for age 45-75 05/02/2024 05/02/20 23, 05/02/2023, 10/12/2021, Additional history exists Pap test for age 21-65 09/21/2024 , 09/21/2021, 07/05/2017, Additional history exists BMI (ht and wt on same day) for age 18+ 12/04/2024 12/05/2023, 10/11/2022, 09/21/2021, Additional history exists Depression screening for age 12+ 12/04/2024 12/05/2023, 10/11/2022, 04/11/2021, Additional history exists Tetanus booster 09/28/2026 09/28/2016, 07/02/2007, 12/10/2006 Fecal testing sDNA-FIT ([place] guard) for age 45-75 12/19/2026 12/20/2023 Lipids for age 45-75 12/04/2028 12/05/2023, 10/11/2022, 09/21/2021, Additional history exists Tdap Completed 09/28/2016, 12/10/2006 HIV for age 15-65 Completed 10/11/2022 Hepatitis C screening for ag e 18-79 Completed 10/11/2022 Procedures Procedure Name Priority Date/Time Associated Diagnosis Comments SCAN-EYE EXAM 07/16/2024 12:00 AM CLAIM TRAINEE SDNA-FIT EXTERNAL (COLOGUARD) Routine 12/20/2023 8:30 AM CDT Screen for colon cancer LIPID PANEL W REFLEX MEASURED LDL Routine 12/05/2023 11:10 AM CDT Screening, lipid XR MAMMO SONIDO BILAT SCREEN IMPLANT Routine 05/02/2023 2:09 PM CLAIM TRAINEE Screening breast examination LC HIV-1/O/2, 4TH GENERATION Routine 10/11/2022 11:15 AM CDT Encounter for screening for HIV LC HCV ANTIBODY RFX TO QUANT PCR Routine 10/11/2022 11:15 AM CDT Need for hepatitis C screening test HPV HIGH RISK Routine 09/21/2021 2:25 PM CDT Pap smear for cervical cancer screening from Last 3 Months or Most Recently Relevant to Health Maintenance Results * SCAN-EYE EXAM (07/16/2024 12:00 AM CLAIM TRAINEE) us Scanner OTHER Final Result * SDNA-FIT EXTERNAL (COLOGUARD) (12/20/2023 8:30 AM CDT) NONINV COLON CA DNA+OCC BLD SCRN STL-IMP Negative Negative 12/26/2023 5:01 AM CDT [facility] (CLIA #:[id number]) Comment: NEGATIVE TEST RESULT. A negative Cologuard result indicates a low likelihood that a colorectal cancer (CRC) or advanced adenoma (adenomatous polyps with more advanced pre-malignant features) is present. The chance that a person with a negative Cologuard test has a colorectal cancer is less than 1 in 1500 (negative predictive value >99.9%) or has an advanced adenoma is less than 5.3% (negative predictive value 94.7%). These data are based on a prospective cross-sectional study of 10,000 individuals at average risk for colorectal cancer who were screened with both Cologuard and colonoscopy. (Wilma Perez al, N Engl J Med 2014;370(14):8155-2702) The normal value (reference range) for this assay is negative. COLOGUARD RE-SCREENING RECOMMENDATION: Periodic colorectal cancer screening is an important part of preventive healthcare for asymptomatic individuals at average risk for colorectal cancer. Following a negative Cologuard result, the [place] [employer] Society and U.S. Multi-Society Task Force screening guidelines recommend a Cologuard re-screening interval of 3 years. References: [place] [employer] Guideline for Colorectal Cancer Screening: https://www.cancer.org/cancer/lxfuk-zkpnku-ojhwgn/mbubqltnr-imafwdyep-iomksyg/ac s-rec ommendations.html.; Griffin DK, Marion MARCUM, Patrica MartinezK, Colorectal Cancer Screening: Recommendations for Physicians and Patients from the U.S. Multi-Society Task Force on Colorectal Cancer Screening , Am J Gastroenterology 2017; 112:8222-5607. TEST DESCRIPTION: Composite algorithmic analysis of stool DNA-biomarkers with hemoglobin immunoassay. Quantitative values of individual biomarkers are not reportable and are not associated with individual biomarker result reference ranges. Cologuard is intended for colorectal cancer screening of adults of either sex, 45 years or older, who are at average-risk for colorectal cancer (CRC). Cologuard has been approved for use by the U.S. FDA. The performance of Cologuard was established in a cross sectional study of average-risk adults aged 50-84. Cologuard performance in patients ages 45 to 49 years was estimated by sub-group analysis of near-age groups. Colonoscopies performed for a positive result may find as the most clinically significant lesion: colorectal cancer [4.0%], advanced adenoma (including sessile serrated polyps greater than or equal to 1cm diameter) [20%] or non- advanced adenoma [31%]; or no colorectal neoplasia [45%]. These estimates are derived from a prospective cross-sectional screening study of 10,000 individuals at average risk for colorectal cancer who were screened with both Cologuard and colonoscopy. (Wilma Ames, N Engl J Med 2014;370(14):9105-8405.) Cologuard may produce a false negative or false positive result (no colorectal cancer or precancerous polyp present at colonoscopy follow up). A negative Cologuard test result does not guarantee the absence of CRC or advanced adenoma (pre-cancer). The current Cologuard screening interval is every 3 years. ([place] [employer] Society and U.S. Multi-Society Task Force). Cologuard performance data in a 10,000 patient pivotal study using colonoscopy as the reference method can be accessed at the following location: www.[employer]/results. Additional description of the Cologuard test process, warnings and precautions can be found at www.[employer].com. Stool specimen (specimen) (Rectum) 12/20/2023 8:30 AM CDT 12/21/2023 10:15 AM CDT us Yuni Gauthier MD URINE Final R esult [facility] (CLIA #:[id number]) [place] [address], * (ABNORMAL) LIPID PANEL W REFLEX MEASURED LDL (12/05/2023 11:10 AM CDT) CHOLESTEROL,TOTAL 224(H) 100 - 199 mg/dL 12/05/2023 6:41 PM CDT [facility] Comment: Cholesterol, Total Reference Ranges Desirable <200 mg/dL Borderline 200-239 mg/dL High >=240 mg/dL TRIGLYCERIDES 146 <150 mg/dL 12/05/2023 6:41 PM CDT [facility] HDL CHOLESTEROL 38(L) >40 mg/dL 6:41 PM CDT [facility] NON-HDL CHOLESTEROL 186(H) <145 mg/dl 12/05/2023 6:41 PM CDT [facility] CHOL/HDL RATIO 5.89(H) <4.50 12/05/2023 6:41 PM CDT [facility] LDL CHOLESTEROL 157(H) <=130 mg/dL 12/05/2023 6:41 PM CDT [facility] VLDL CHOLESTEROL 29 <=30 mg/dL 12/05/2023 6:41 PM CDT [facility] PROVIDER ORDERED STATUS RANDOM 12/05/2023 6:41 PM CDT [facility] Blood BLOOD SPECIMEN / Unknown Venipuncture / Unknown 12/05/2023 11:10 AM CDT 12/05/2023 11:10 AM CDT us Yuni Gauthier MD CHEMISTRY Final R esult [facility] [address] [place] [address], [place] * XR MAMMO SONIDO BILAT SCREEN IMPLANT (05/02/2023 2:09 PM CLAIM TRAINEE) Anatomical Region Laterality Modality BREASTS, Breast Left, Breast Right Bilateral Mammography 05/02/2023 2:09 PM CLAIM TRAINEE Impressions 05/02/2023 3:14 PM CLAIM TRAINEE IMPRESSION: No evidence of malignancy. Recommend routine annual screening mammography. When performed, computer-aided detection was used in the interpretation of this study. ACR 1: Negative. A lay language report of this examination will be mailed to the patient. Narrative 05/02/2023 3:14 PM CLAIM TRAINEE EXAM: MAMMOGRAM IMPLANTS SONIDO SCREENING BILATERAL LOCATION: [facility] DATE: 05/02/2023 INDICATION: Asymptomatic. Screening Mammogram. COMPARISON: 10/12/21, 06/23/19 BREAST DENSITY: There are scattered areas of fibroglandular density. FINDINGS: Tomosynthesis craniocaudal and mediolateral oblique views, and push back Mendy views were obtained. There is no evidence for spiculated masses, architectural distortion, asymmetry or suspicious calcifications. The implants are unremarkable. Procedure Note Mari, Jaspal Voss MD - 05/02/2023 EXAM: MAMMOGRAM IMPLANTS SONIDO SCREENING BILATERAL LOCATION: [facility] DATE: 05/02/2023 INDICATION: Asymptomatic. Screening Mammogram. COMPARISON: 10/12/21, 06/23/19 BREAST DENSITY: There are scattered areas of fibroglandular density. FINDINGS: Tomosynthesis craniocaudal and mediolateral oblique views, and push back Mendy views were obtained. There is no evidence for spiculated masses, architectural distortion, asymmetry or suspicious calcifications. The implants are unremarkable. IMPRESSION: IMPRESSION: No evidence of malignancy. Recommend routine annual screening mammography. When performed, computer-aided detection was used in the interpretation of this study. ACR 1: Negative. A lay language report of this examination will be mailed to the patient. Yuni Gauthier MD MAMMO Final R esult * LC HCV ANTIBODY RFX TO QUANT PCR (10/11/2022 11:15 AM CDT) Pathologist [facility] HCV Ab Non Reactive Non Reactive 10/14/2022 5:13 AM CDT [facility] ([facility]) Blood BLOOD SPECIMEN / Unknown Venipuncture / Unknown 10/11/2022 11:15 AM CDT 10/11/2022 11:15 AM CDT Narrative [facility] ([facility]) - 10/14/2022 5:13 AM CDT Performed at: [address] [place] [id number] Restaurant Floor Manager: Bebeto Villarreal MD, Phone: [phone] Yuni Gauthier MD LABORATORY Final R esult [facility] ([facility]) [address] [place] [id number], * LC HIV-1/O/2, 4TH GENERATION (10/11/2022 11:15 AM CDT) [facility] HIV Scr 4th Gen Non Reactive Non Reactive 10/14/2022 5:13 AM CDT [facility] ([facility]) Comment: HIV Negative HIV-1/HIV-2 antibodies and HIV-1 p24 antigen were NOT detected. There is no laboratory evidence of HIV infection. Blood BLOOD SPECIMEN / Unknown Venipuncture / Unknown 10/11/2022 11:15 AM CDT 10/11/2022 11:15 AM CDT Narrative [facility] ([facility]) - 10/14/2022 5:13 AM CDT Performed at: [address] [id number] Restaurant Floor Manager: Bebeto Villarreal MD, Phone: [phone] us Yuni Gauthier MD LABORATORY Final R esult [facility] ([facility]) [address] [place] [id number] * HPV HIGH RISK (09/21/2021 2:25 PM CDT) Pathologist [facility] TYPE 16 Negative Negative 09/23/2021 2:25 PM CDT [facility] TYPE 18 Negative Negative 09/23/2021 2:25 PM CDT [facility] OTHER HIGH RISK TYPES Negative Negative 09/23/2021 2:25 PM CDT [facility] Other (Cervical) Non-Blood / Unknown 09/21/2021 2:25 PM CDT 09/22/2021 9:36 AM CDT Narrative [facility] - 09/23/2021 2:25 PM CDT HPV types 16, 18, 31, 33, 35, 39, 45, 51, 52, 56, 58, 59, 66 and 68 DNA were undetectable or below the pre-set threshold. Methodology: Elena Vj 4800 HPV Test us Krysta Rodriguez NP MICROBIOLOGY Final Res ult [facility] [address] [place] [address], [place] from Last 3 Months or Most Recently Relevant to Health Maintenance Insurance [place] Advance Directives * Full Code (Latest Code Status on File) Date Activated Date Inactivated Comments 03/29/2012 10:27 PM 03/30/2012 2:47 PM * Full Code Date Activated Date Inactivated Comments 03/29/2012 11:43 AM 03/29/2012 10:27 PM Care Teams Returned Case Inspector Relationship Specialty [place] [id number] [place] [address] PCP - General Family Practice 10/11/22 Maame Zamora MD Gynecology Obstetrics and Gynecology 09/28/16
[2024-08-02 13:04] LABS: Basophils Absolute Auto 0.01 K/uL (0.00-0.30); Basophils Percent Auto 0.1 % (0.0-3.0); Eosinophils Absolute Auto 0.02 K/uL (0.00-0.50); Eosinophils Percent Auto 0.3 % (0.0-7.0); Hematocrit 33.5 % (33.0-51.0); Immature Granulocytes Abs Auto 0.03 K/uL (0.00-0.30); Immature Granulocytes Pct Auto 0.4 %; Lymphocytes Absolute Auto 1.89 K/uL (0.90-2.90); Mean Corpuscular HGB Conc 33 gm/dL (32-36); Mean Corpuscular Hemoglobin 29 pg (26-34); Mean Corpuscular Volume 88 fL (80-100); Monocytes Percent Auto 6.4 % (0.0-11.0); Neutrophils Absolute Auto 5.42 K/uL (1.7-7.0); Neutrophils Percent Auto 68.8 % (42.0-72.0); Platelet Count* 236 K/uL (140-440); RDW Coefficient of Variation % 17.1 % (11.5-15.5); Red Blood Count 3.83 m/uL (4.00-5.20); White Blood Count* 7.87 K/uL (4.50-11.00)
--- NOTE | 2024-08-02 13:04 | ED.ARRPALP ---
HPI - Arrhythmia/Palpitations General Date Seen: 08/02/24 Chief Complaint: Arrhythmia/Palpitations Stated Complaint: Post op heart palpitations Time Seen by Provider: 08/02/24 11:56 Source: patient Mode of arrival: ambulatory Limitations: no limitations History of Present Illness HPI narrative: Patient is a 58-year-old female presenting to emergency department for palpitations. She states she has had palpitations in the past with her usually short lived. She states yesterday she began to have the more frequently and had them again this morning. She recently return from [place] for she had a local anesthesia procedure of her breast after a cyst removal by the same provider 1 year ago. She states that was all done under local but she did use some nitric oxide. When she woke up she had no issues. This procedure was done a couple days ago. She spoke to her surgeon today who told her to come to the emergency department to be evaluated. She has no chest pain associated with this. Is currently asymptomatic. Denies any associated shortness of breath. No history of heart or lung disease. Denies fevers, chills, lightheadedness, dizziness, weakness, numbness, abdominal pain. No other concerns noted. Related Data Home Medications ?Medication ?Instructions ?Recorded ?Confirmed eszopiclone 3 mg tablet 3 mg PO QHS 08/12/22 08/02/24 Progesterone SR 200 mg PO HS 08/02/24 08/02/24 acetaminophen 500 mg tablet mg PO PRN 08/02/24 clindamycin HCl 300 mg capsule 300 mg PO 3XD 08/02/24 08/02/24 estradiol 1mg/gm topical DAILY PRN 08/02/24 thyroid (pork) 90 mg tablet 90 mg PO DAILY 08/02/24 08/02/24 ([place] Thyroid) tramadol 50 mg tablet 50 mg PO Q6H PRN 08/02/24 08/02/24 Allergies Allergy/AdvReac Type Severity Reaction Status Date / Time Penicillins Allergy Hives Verified 08/02/24 12:01 Review of Systems Status of ROS: Reports: 10 or more systems reviewed and unremarkable except as noted in History and below PFSH PFSH Social History Smoking Status: Never smoker Do you use any of these nicotine containing products: None Second hand tobacco smoke exposure: No How often do you have a drink containing alcohol: monthly or less How many standard drinks containing alcohol do you have on a typical day: 3 or 4 How often do you have six or more drinks on one occasion: Never AUDIT-C Alcohol total score: 2 Non-prescribed substance use: denies use Exam Narrative: Exam Narrative: Const: Well-nourished, Well-developed, in no distress Eyes: PERRL, no conjunctival injection, and symmetrical lids HENT: Atraumatic external nose and ears. Moist mucous membranes. Neck: Symmetric, trachea midline, No thyromegaly. CVS: RRR, No murmurs or gallops. Peripheral pulses 2+ and equal in all extremities RESP: Unlabored respiratory effort. Clear to auscultation bilaterally. GI: Nontender/Nondistended, No rebound or guarding. MSK:Extremities w/o deformity, Normal Active ROM Skin: Warm, Dry. No rashes or lesions. Neuro: Normal Muscle tone, No focal neurological deficits. Psych: Awake, Alert, & Oriented x3. Appropriate mood and affect. Const: Vital Signs, click to edit/add: Vital Signs - 24 hr 08/02/24 12:02 08/02/24 13:01 08/02/24 13:31 Temperature 97.9 F Pulse Rate 83 82 Pulse Rate [Pulse Oximeter] 86 Respiratory Rate 14 12 15 Blood Pressure 99/54 L 97/55 L Blood Pressure [Ri ght Upper Arm] 113/73 Pulse Oximetry 95 97 96 Oxygen Delivery Me thod Room Air 08/02/24 14:01 Temperature Pulse Rate 83 Pulse Rate [Pulse Oximeter] Respiratory Rate 18 Blood Pressure 103/57 L Blood Pressure [Ri ght Upper Arm] Pulse Oximetry 95 Oxygen Delivery Me thod Course Vital Signs Vital signs: Initial Vital Signs Temperature 97.9 F 08/02/24 12:02 Temperature Source Temporal Artery Scan 08/02/24 12:02 Pulse Rate 86 08/02/24 12:02 Pulse Rhythm Regular 08/02/24 12:02 Respiratory Rate 14 08/02/24 12:02 Blood Pressure 113/73 08/02/24 12:02 Blood Pressure Mean 86 08/02/24 12:02 Blood Pressure Position Sitting 08/02/24 12:02 Pulse Oximetry 95 08/02/24 12:02 Oxygen Delivery Method Room Air 08/02/24 12:02 Vital Signs Temperature 97.9 F 08/02/24 12:02 Pulse Rate 86 08/02/24 12:02 Respiratory Rate 14 08/02/24 12:02 Blood Pressure 113/73 08/02/24 12:02 Pulse Oximetry 95 08/02/24 12:02 Oxygen Delivery Method Room Air 08/02/24 12:02 Temperature 97.9 F 08/02/24 12:02 Pulse Rate 83 08/02/24 14:01 Respiratory Rate 18 08/02/24 14:01 Blood Pressure 103/57 L 08/02/24 14:01 Pulse Oximetry 95 08/02/24 14:01 Oxygen Delivery Method Room Air 08/02/24 12:02 MDM - Arrhythmia/Palpitations MDM Narrative Medical decision making narrative: Patient is a 58-year-old female presenting for palpitations. Will do an EKG to look for any signs arrhythmia. BMP magnesium order to look for signs of electrolyte abnormalities. Will order COVID/flu/RSV for possible viral symptoms causing this. She does have hypothyroidism and I will order a TSH with reflex T4. Chest x-ray also order to look for any intrathoracic abnormalities. Lab work returned showing no concerning abnormalities. EKG shows no concerning findings. I do not believe repeat troponin is necessary as symptoms have been going on since yesterday. Chest x-ray reviewed myself and the radiologist shows no concerning findings. While speaking to her again she states she had another episode where she felt the palpitation. At that time on amount change showed a PVCs she states she has been noticing that change on the monitor whenever she would have the sensation of palpitations. I believe this time her symptoms are from PVCs. The typically benign and I do believe she is safe for outpatient follow-up. I spoke to her about possibly doing a Zio patch. I explained that I do not believe she absolutely needs 1 right now and that she follow up with her primary care provider in do it then if they persist. At this time she states she would like to wait it follow-up with the primary care provider if the symptoms do persist. She will be discharged. She is agreeable to this plan Lab Data Labs: Lab Results 08/02/24 08/02/24 08/02/24 Range/Units 12:57 13:06 13:13 WBC 7.87 (4.50-11.00) K/uL RBC 3.83 L (4.00-5.20) m/uL Hgb 11.0 L (12.0-16.0) gm/dL Hct 33.5 (33.0-51.0) % MCV 88 (80-100) fL MCH 29 (26-34) pg MCHC 33 (32-36) gm/dL RDW Coeff of Lynda 17.1 H (11.5-15.5) % Plt Count 236 (140-440) K/uL Neut % (Auto) 68.8 (42.0-72.0) % Lymph % (Auto) 24.0 (20-44) % [place] % (Auto) 6.4 (0.0-11.0) % Eos % (Auto) 0.3 (0.0-7.0) % Baso % (Auto) 0.1 (0.0-3.0) % Neut # (Auto) 5.42 (1.7-7.0) K/uL Lymph # (Auto) 1.89 (0.90-2.90) K/uL [place] # (Auto) 0.50 (0.00-0.90) K/UL Eos # (Auto) 0.02 (0.00-0.50) K/uL Baso # (Auto) 0.01 (0.00-0.30) K/uL Abs Immat Gran (auto) 0.03 (0.00-0.30) K/uL Imm/Tot Granulo (auto) 0.4 % Sodium 135 (135-149) mmol/L Potassium 4.2 (3.6-5.1) mmol/L Chloride 102 (96-114) mmol/L Carbon Dioxide 28 (20-32) mmol/L Anion Gap 5 L (7-15) mEq/L BUN 15 (7-30) mg/dL Creatinine 0.9 (0.5-1.5) mg/dL Estimated Creat Clear 61.31 Estimated GFR 74 ml/min Glucose 99 (60-115) mg/dL Calcium 8.8 (8.4-10.6) mg/dL Magnesium 2.2 (1.5-2.6) mg/dL Troponin I < 0.01 L (0.01-0.04) ng/mL TSH 0.442 (0.270-4.200) uIU/mL SARS-CoV-2 (PCR) Negative SARS-CoV-2 (Negative) Influenza Type A (PCR) Negative PCR FLU A (Negative) Influenza Type B (PCR) Negative PCR FLU B (Negative) RSV (PCR) Negative PCR RSV (Negative) Lab Acknowledgement Test Added Imaging Data Chest x-ray: Attestation: I have reviewed the pertinent imaging results. Radiologist's impression: Negative chest. Dictated by Fran Mcgill MD @ 08/02/2024 1:45:23 PM ECG Data Attestation: I personally reviewed and interpreted this ECG as follows: Prior ECG tracings: not available for review Interpretation: Normal sinus rhythm with a rate 71 beats per minute, normal intervals, normal axis, no ST or T-wave abnormalities. Discharge Plan Discharge Clinical Impression: Ventricular premature beats Patient Disposition: Home, Self-Care Condition: Stable Instructions: Premature Ventricular Contractions (ED) Additional Instructions: I believe your symptoms are being caused by premature ventricular contractions. These are considered a benign condition. If the symptoms do persist follow-up with your primary care provider and possibly get a Zio patch, which is a heart monitor sticker that you wear for 14 days, depending on what they recommend. If symptoms do get worse or you develop any other concerning symptoms she can always return for re-evaluation. Prescriptions: No Action eszopiclone 3 mg tablet 3 mg PO QHS clindamycin HCl 300 mg capsule 300 mg PO 3XD acetaminophen 500 mg tablet PO PRN Patient Comments: [NO ORIGINAL SIG] tramadol 50 mg tablet 50 mg PO Q6H PRN Patient Comments: TAKE 1 TO 2 TABLETS BY MOUTH ON DAY OF SURGERY. TAKE 1 TABLET BY MOUTH EVERY 6 HOURS NEEDED FOR PAIN AFTER SURGERY Progesterone SR capsule 200 mg PO HS Rx Instructions: Compounded medication estradiol 1mg/gm cream topical DAILY PRN Rx Instructions: Compounded medication; Apply up to 4 clicks to thin skinned area daily as needed for symptom relief. thyroid (pork) [[place] Thyroid] 90 mg tablet 90 mg PO DAILY Follow Up/Referrals: Yuni Gauthier MD [Primary Care Provider] - Stand Alone Forms: [employer] Info Instructions
[2024-08-02 13:06] LABS: Slide Review Reflex No
[2024-08-02 13:16] LABS: Chloride* 102 mmol/L (96-114); Potassium* 4.2 mmol/L (3.6-5.1); Sodium* 135 mmol/L (135-149)
[2024-08-02 13:19] LABS: Anion Gap 5 mEq/L (7-15); Blood Urea Nitrogen* 15 mg/dL (7-30); Calcium* 8.8 mg/dL (8.4-10.6); Carbon Dioxide* 28 mmol/L (20-32); Creatinine* 0.9 mg/dL (0.5-1.5); Est. Creatinine Clearance* 61.31; Estimated Glomerular Filt Rate 74 ml/min; Glucose* 99 mg/dL (60-115)
[2024-08-02 13:20] LABS: Magnesium* 2.2 mg/dL (1.5-2.6)
[2024-08-02 13:55] LABS: PCR FLU A Negative PCR FLU A (Negative); PCR FLU B Negative PCR FLU B (Negative); PCR RSV Negative PCR RSV (Negative); SARS PCR* Negative SARS-CoV-2 (Negative)
[2024-08-02 14:11] LABS: TSH With Reflex to FT4* 0.442 uIU/mL (0.270-4.200)
[2024-08-02 14:24] LABS: Troponin I* < 0.01 ng/mL (0.01-0.04)
== END 2024-08-02 15:24 | disposition home or self-care (01) ==
PROVIDERS: Emergency Provider Student in an Organized Health Care Education/Training Program; PCP Family Medicine
DX: I49.3 Ventricular premature depolarization (principal)
CPT/HCPCS: 36415; 71046; 80048; 83735; 84443; 84484; 85025; 87631; 93005; 99284; 99285